=== PATIENT | female | born 1955 | race Caucasian/White ===

== ENCOUNTER 2018-10-13 10:34 | Emergency (ER) | payer SELFPAY ==
[~2018-10-13] VITALS: Wt 72.7 kg
[2018-10-13] MEDS ORDERED: ACETAMINOPHEN 500 MG TAB PO STA (10:42)
[2018-10-13] MEDS ORDERED: IBUP-1542 PO (11:32)
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
[2018-10-13 12:08] VITALS: BP 123/85; PULSE 72; RESP 17
== END 2018-10-13 12:59 | disposition home or self-care (01) ==
LOC: E/R 10:34
DX: M79.671 Pain in right foot (principal); M79.672 Pain in left foot; M25.572 Pain in left ankle and joints of left foot
CPT/HCPCS: 73610

== ENCOUNTER 2019-02-04 09:47 | Emergency (ER) | payer SELFPAY ==
[~2019-02-04] VITALS: Ht 152.4 cm; Wt 86.0 kg
[~2019-02-04 09:47] MED LIST: IBUP-1542 PO
[2019-02-04 10:00] VITALS: BP 135/62; PULSE 83; RESP 18; Ht 152.4 cm; Wt 86.0 kg
[2019-02-04] MEDS ORDERED: ALPR0.25 PO (10:33)
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
== END 2019-02-04 11:01 | disposition home or self-care (01) ==
LOC: FTE 09:47
DX: F41.9 Anxiety disorder, unspecified (principal)
CPT/HCPCS: 99283